=== PATIENT | male | born 1965 | race Caucasian/White ===

== ENCOUNTER 2022-05-09 00:20 | Emergency (ER) | payer MEDICAID ==
[~2022-05-09] VITALS: Ht 172.7 cm; Wt 77.3 kg
[~2022-05-09 00:20] MED LIST: MAGN400C PO; MULT-342 PO; NO HOME MEDS
[2022-05-09 00:34] VITALS: BP 136/85
[2022-05-09] MEDS ORDERED: ceFAZolin 1gm IM kit IM ONE (04:20)
[2022-05-09] MEDS ORDERED: acetaminophen 325mg tablet PO ONE (04:20)
[2022-05-09] MEDS ORDERED: TETanus/Pertussis (Acell)/Diphther VAC/PF (Tdap-Adult) 0.5ml syringe IMVAC ONE (05:30)
[2022-05-09 08:18] LABS: BASOPHILS % (AUTO) 0.2 % (0-1); EOSINOPHILS % (AUTO) 0.1 % (0-6); HEMOGLOBIN 12.2 g/dl (14.0-17.9); LYMPHOCYTES # (AUTO) 1.4 X10'3 (1.1-4.8); LYMPHOCYTES % (AUTO) 6.1 % (21-51); MEAN CORPUSCULAR HEMOGLOBIN 33.7 PG (27.0-31.0); MEAN CORPUSCULAR VOLUME 99.2 FL (78-98); MONOCYTES # (AUTO) 1.9 X10'3 (0-0.9); MONOCYTES % (AUTO) 8.1 % (2-12); NEUTROPHILS # (AUTO) 19.8 X10'3 (1.8-7.7); NEUTROPHILS % (AUTO) 85.5 % (42-75); PLATELET COUNT 247 X10'3 (140-440); RED BLOOD COUNT 3.63 X10'6 (4.70-6.10); RED CELL DISTRIBUTION WIDTH 13.5 % (11.5-14.5); WHITE BLOOD COUNT 23.1 X10'3 (4.5-11.0)
== END 2022-05-09 09:26 | disposition home or self-care (01) ==
LOC: ER 00:21
DX: S01.81XA Laceration without foreign body of other part of head, initial encounter (principal); J44.9 Chronic obstructive pulmonary disease, unspecified; Z59.00 Homelessness unspecified; W01.0XXA Fall on same level from slipping, tripping and stumbling without subsequent striking against object, initial encounter; Y93.89 Activity, other specified; Y92.89 Other specified places as the place of occurrence of the external cause; Y99.8 Other external cause status
CPT/HCPCS: 12055; 70450; 72125; 80320; 85025; 90471; 90715; 96372; 99284; J0690; A6449

== ENCOUNTER 2022-05-17 08:26 | Emergency (ER) | payer MEDICAID ==
[~2022-05-17] VITALS: Ht 172.7 cm; Wt 77.0 kg
[2022-05-17 08:44] VITALS: BP 100/62
== END 2022-05-17 11:24 | disposition home or self-care (01) ==
LOC: ER 08:26
DX: Z48.01 Encounter for change or removal of surgical wound dressing (principal); J44.9 Chronic obstructive pulmonary disease, unspecified; Z59.00 Homelessness unspecified
CPT/HCPCS: 99281; A6449

== ENCOUNTER 2024-02-20 13:43 | Outpatient (CLI) | payer MEDICAID | END 2024-02-20 23:59 | disposition home or self-care (01) | LOC: RAD 13:43 | PROVIDERS: ATTEND Student in an Organized Health Care Education/Training Program | DX: S82.64XA Nondisplaced fracture of lateral malleolus of right fibula, initial encounter for closed fracture (principal); M47.812 Spondylosis without myelopathy or radiculopathy, cervical region; M48.02 Spinal stenosis, cervical region; M17.11 Unilateral primary osteoarthritis, right knee; M25.561 Pain in right knee; M25.571 Pain in right ankle and joints of right foot; M54.2 Cervicalgia; X58.XXXA Exposure to other specified factors, initial encounter; Y93.89 Activity, other specified; Y92.89 Other specified places as the place of occurrence of the external cause; Y99.8 Other external cause status | CPT/HCPCS: 72040; 73560; 73600 ==